=== PATIENT | male | born 1975 | race Caucasian/White ===

== ENCOUNTER → 2017-11-24 | Outpatient (CLI) | payer OTHER ==
[~2017-11-24] MED LIST: ACET325 PO; LISI20 PO; METO50ER PO; PRAV20 PO; Pepcid20 MG PO; Prednisone20 MG PO; Vistaril50 MG PO
== END ==
LOC: LAB EV 13:52
DX: R50.9 Fever, unspecified (principal)
CPT/HCPCS: 87070

== ENCOUNTER 2020-08-07 10:08 | Emergency (ER) | payer OTHER ==
[~2020-08-07] VITALS: Ht 195.6 cm; Wt 122.9 kg
[~2020-08-07 10:08] MED LIST changes: +AMLO5; +NITR.4SL SL
[2020-08-07] MEDS ORDERED: Vistaril25 MG PO (10:56)
[2020-08-07] MEDS ORDERED: Prednisone20 MG PO (10:56)
[2020-08-07] MEDS ORDERED: Pepcid20 MG PO (10:56)
== END 2020-08-07 11:39 | disposition home or self-care (01) ==
LOC: ER 10:08
DX: L50.9 Urticaria, unspecified (principal); F41.9 Anxiety disorder, unspecified; I10 Essential (primary) hypertension; E78.5 Hyperlipidemia, unspecified; Z88.6 Allergy status to analgesic agent; Z79.52 Long term (current) use of systemic steroids; Z79.899 Other long term (current) drug therapy
CPT/HCPCS: 99283; J7512; Q0177

== ENCOUNTER 2020-11-12 07:13 | Day surgery (SDC) | payer OTHER ==
[~2020-11-12] VITALS: Ht 195.6 cm; Wt 121.5 kg
[~2020-11-12 07:13] MED LIST changes: +AMLO10 PO; +Carvedilol12.5 MG PO; +PRAVASTATIN SOD40 MG PO; +Vistaril25 MG PO; +ZESTRIL40 M2 PO
[2020-11-12] MEDS ORDERED: NITR.4SL (07:34)
[2020-11-12] MEDS ORDERED: ACET500 (07:36)
== END 2020-11-12 09:26 | disposition home or self-care (01) ==
LOC: ORSCSDS 07:13
PROVIDERS: Internal Medicine Gastroenterology
PROC: 0DJD8ZZ Inspection of Lower Intestinal Tract, Via Natural or Artificial Opening Endoscopic (ICD-10-PCS; principal; 2020-11-12 08:30)
DX: K62.5 Hemorrhage of anus and rectum (principal); Z80.0 Family history of malignant neoplasm of digestive organs; K57.30 Diverticulosis of large intestine without perforation or abscess without bleeding; K64.8 Other hemorrhoids; I10 Essential (primary) hypertension; E66.9 Obesity, unspecified; Z68.33 Body mass index [BMI] 33.0-33.9, adult; Z79.82 Long term (current) use of aspirin; Z79.899 Other long term (current) drug therapy
CPT/HCPCS: J0461; J2405; J2704; J7120

== ENCOUNTER 2022-08-27 10:44 | Day surgery (SDC) | payer OTHER ==
[~2022-08-27] VITALS: Ht 195.6 cm; Wt 126.6 kg
[~2022-08-27 10:44] MED LIST changes: +ACET500; +NITR.4SL
--- NOTE | 2022-08-27 13:33 | NUR ---
08/27/22 1333 JAME OLIVER 0.15MG OF EPI ADDED TO 30MLS OF ROPIVACAINE 0.5% TO CREATE A LOCAL SOLUTION OF ROPIVACAINE 0.5% WITH EPI 1:200,000. LOCAL POURED ONTO STERILE FIELD FOR USE DURING CASE.
== END 2022-08-27 16:05 | disposition home or self-care (01) ==
LOC: ORSCSDS 10:44
PROVIDERS: Podiatrist Foot & Ankle Surgery
PROC: 0SBG4ZZ Excision of Left Ankle Joint, Percutaneous Endoscopic Approach (ICD-10-PCS; principal; 2022-08-27 12:15)
DX: M24.872 Other specific joint derangements of left ankle, not elsewhere classified (principal); S93.402D Sprain of unspecified ligament of left ankle, subsequent encounter; M25.572 Pain in left ankle and joints of left foot; Z79.899 Other long term (current) drug therapy; E66.9 Obesity, unspecified; Z68.33 Body mass index [BMI] 33.0-33.9, adult
CPT/HCPCS: C1713; J0171; J0690; J1100; J1885; J2250; J2405; J2704; J2795; J3010

== ENCOUNTER 2024-03-30 06:05 | Day surgery (SDC) | payer OTHER ==
[~2024-03-30] VITALS: Ht 195.6 cm; Wt 129.3 kg
[~2024-03-30 06:05] MED LIST changes: +Lactated Ringer's 1,000 ML IV ONE
[2024-03-30] MEDS ORDERED: HYDR1TAB94 PO (06:46)
[2024-03-30] MEDS ORDERED: Ropivacaine 0.5% HCL/PF 5 MG/ML 30ML Vial ONE (06:51)
[2024-03-30] MEDS ORDERED: propofoL 20 ML IV ONE (06:54)
[2024-03-30] MEDS ORDERED: FentaNYL Citrate 50 MCG/ML 2 ML Injection ONE (06:56)
[2024-03-30] MEDS ORDERED: Midazolam HCl 1MG / ML 2ML Vial ONE (06:57)
[2024-03-30] MEDS ORDERED: Lactated Ringer's 1,000 ML IV ONE ×2 (06:57→08:50)
[2024-03-30] MEDS ORDERED: CeFAZolin Sodium 3,000 MG in NS 100 ML IV SCH (07:10)
[2024-03-30] MEDS ORDERED: Lidocaine HCl 2% Jelly 120MG/6ML SYR (20MG PER ML) ONE (07:13)
[2024-03-30] MEDS ORDERED: Rocuronium Bromide 10 MG/ML 5ML Injection IV ONE ×2 (07:15→07:45)
[2024-03-30] MEDS ORDERED: EPINEPhrine HCl 1 MG/ML 1ML Amp XX ONE (07:59)
[2024-03-30] MEDS ORDERED: Ropivacaine 0.5% HCl/Pf 5 MG/ML 20ML VIAL INJ ONE (07:59)
--- NOTE | 2024-03-30 08:01 | NUR ---
03/30/24 0801 Nicolasa Grace PRE-OP NERVE BLOCK PREFORMED IN PRE-OP ROOM WITH THIS RN AND . T/O AT 719. START TIME: 726. END TIME: 732. PT MONITORED ON PULSE OX, MAINTAINED SATURATIONS AT 98-97%. NO ISSUES NOTED.
[2024-03-30] MEDS ORDERED: Prozac20 MG PO (08:11)
[2024-03-30] MEDS ORDERED: Sugammadex Sodium 200 MG/2ML SDV (100 MG/ML) ONE (08:43)
[2024-03-30] MEDS ORDERED: Flumazenil 0.1 MG / ML 5ML Vial ONE (08:59)
[2024-03-30] MEDS ORDERED: HYDROcodone 5-APAP 325 TAB ONE (09:45)
--- NOTE | 2024-04-02 10:23 | NUR ---
04/02/24 Awa3 Liz Islas 30ML OF ROPIVACAINE 0.5% MIXED AND VERIFIED WITH 0.15ML OF EPI (1MG/ML) TO MAKE ROPIVACAINE 0.5% WITH EPI 1:200,000 FOR INJECTION AT THE OPSITE. 1ML OF EPI (1MG/ML) ADDED TO THE FIRST BAG OF LR FOR IRRIGATION AT THE OPSITE.
--- NOTE | 2024-04-02 11:24 | NUR ---
04/02/24 1124 CAN TOSCANO LATE ENTRY CHARTING D/T COMPUTER SYSTEM FAILURE FACILITY WIDE
--- NOTE | 2024-04-02 11:31 | NUR ---
04/02/24 1131 CAN TOSCANO LATE ENTRY CHARTING D/T COMPUTER SYSTEM FAILURE FACILITY WIDE CARE ADMINISTERED BY BECCA AND [email or web address]
[2024-04-02 11:32] VITALS: BP 128/84
== END 2024-03-30 10:17 | disposition home or self-care (01) ==
LOC: ORSCSDS 06:05
PROVIDERS: Podiatrist Foot & Ankle Surgery
PROC: 0YQ90ZZ Repair Right Lower Extremity, Open Approach (ICD-10-PCS; principal; 2024-03-30 07:30)
PROC: 0SJF4ZZ Inspection of Right Ankle Joint, Percutaneous Endoscopic Approach (ICD-10-PCS; 2024-03-30 07:30)
DX: S93.431A Sprain of tibiofibular ligament of right ankle, initial encounter (principal); I10 Essential (primary) hypertension; M25.371 Other instability, right ankle; M65.9 Synovitis and tenosynovitis, unspecified; Z79.899 Other long term (current) drug therapy
CPT/HCPCS: A9270; C1713; J0171; J0690; J2250; J2704; J2795; J3010; J7120

== ENCOUNTER → 2025-05-20 | Outpatient (CLI) | payer OTHER ==
[~2025-05-20] MED LIST changes: +HYDR1TAB94 PO; -Lactated Ringer's 1,000 ML IV ONE; +Prozac20 MG PO
[2025-05-20 10:29] LABS: BASOPHILS ABSOLUTE AUTO 0.03 K/mm3 (0.00-0.23); BASOPHILS PERCENT AUTO 1 % (0-2); EOSINOPHILS ABSOLUTE AUTO 0.14 K/mm3 (0.00-0.68); EOSINOPHILS PERCENT AUTO 3 % (0-6); Hematocrit 43.3 % (37.0-53.0); Hemoglobin 15.2 g/dL (13.5-17.5); IMMATURE GRAN ABSOLUTE AUTO 0.02 K/mm3 (0.00-0.10); IMMATURE GRAN PERCENT AUTO 0 % (0-1); LYMPHOCYTES ABSOLUTE AUTO 1.49 K/mm3 (0.84-5.20); LYMPHOCYTES PERCENT AUTO 31 % (21-46); MONOCYTES ABSOLUTE AUTO 0.37 K/mm3 (0.16-1.47); MONOCYTES PERCENT AUTO 8 % (4-13); Mean Corpuscular HGB Conc 35.1 g/dL (31.5-36.5); Mean Corpuscular Volume 86 fL (80-100); NEUTROPHILS ABSOLUTE AUTO 2.69 K/mm3 (1.96-9.15); NEUTROPHILS PERCENT AUTO 57 % (41-73); NRBC ABSOLUTE 0.00 K/mm3 (0.00-0.02); NRBC Auto 0.0 /100 WBC (0.0-0.2); Platelet Count 196 K/mm3 (150-400); RDW Coefficient Variation 13.0 % (11.7-14.2); RDW Standard Deviation 40.2 fL (35.1-46.3)
[2025-05-20 10:38] LABS: Alanine Aminotransfer (ALT/SGP 35.0 U/L (12-78); Albumin, Blood 4.3 g/dL (3.4-5.0); Albumin/Globulin Ratio 1.0 (0.8-1.8); Anion Gap 15.0 mmol/L (6-16); Aspartate Aminotrans (AST/SGOT 30.0 U/L (12-37); Bilirubin, Total 0.9 mg/dL (0.1-1.0); Blood Urea Nitrogen 17.0 mg/dL (8-24); CO2, Blood 26.0 mmol/L (21-32); Calcium, Blood 9.2 mg/dL (8.5-10.1); Chloride, Blood 103.0 mmol/L (98-108); Creatinine, Blood 1.08 mg/dL (0.60-1.20); Globulin, Blood 4.2 g/dL (2.2-4.0); Glucose, Blood 126.0 mg/dL (70-99); Potassium, Blood 4.2 mmol/L (3.5-5.5); Sodium, Blood 140.0 mmol/L (136-145); Total Protein, Blood 8.5 g/dL (6.4-8.2)
== END ==
LOC: LAB 10:23 → LAB SHORT 10:23
PROVIDERS: Family Medicine
DX: R07.9 Chest pain, unspecified (principal)
CPT/HCPCS: 80053; 84484; 85025

== ENCOUNTER → 2025-07-19 | Outpatient (CLI) | payer OTHER ==
[2025-07-19 13:59] LABS: CHOL/HDL RATIO 3.9; Cholesterol 175 mg/dL (50-200); HDL Cholesterol 45 mg/dL (>39); LDL/HDL RATIO 2.4; Low Density Lipoprotein Chol 108 mg/dL (0-110); Thyroid Stimulating Hormone 1.050 uIU/mL (0.360-4.800); Triglycerides 108 mg/dL (30-160); Very Low Density Lipoprot Chol 21 mg/dL (6-32)
== END | disposition home or self-care (01) ==
LOC: LAB 12:21 → LAB SHORT 12:21
DX: E66.811 Obesity, class 1 (principal); I10 Essential (primary) hypertension
CPT/HCPCS: 80061; 83036; 84443